=== PATIENT | female | born 1985 | race Caucasian/White ===

== ENCOUNTER → 2017-11-21 | Outpatient (CLI) | payer BC ==
[~2017-11-21] MED LIST: DROSPIRENONE; LORTAB 5/500 501 TAB PO; MOTRIN 800800 MG/TAB PO; NAPROSYN500 MG PO; PROBIOTIC FORMU1 CAP
== END ==
LOC: SUN.DIA 08:45
DX: O24.419 Gestational diabetes mellitus in pregnancy, unspecified control (principal); Z3A.29 29 weeks gestation of pregnancy; Z71.3 Dietary counseling and surveillance
CPT/HCPCS: G0108

== ENCOUNTER → 2017-12-06 | Outpatient (CLI) | payer BC | LOC: SUN.DIA 09:02 | DX: O24.419 Gestational diabetes mellitus in pregnancy, unspecified control (principal); Z3A.31 31 weeks gestation of pregnancy; Z71.3 Dietary counseling and surveillance | CPT/HCPCS: G0108 ==

== ENCOUNTER → 2017-12-13 | Outpatient (CLI) | payer BC | LOC: SUN.DIA 10:15 | DX: O24.414 Gestational diabetes mellitus in pregnancy, insulin controlled (principal); Z3A.32 32 weeks gestation of pregnancy; Z71.3 Dietary counseling and surveillance | CPT/HCPCS: G0108 ==

== ENCOUNTER → 2017-12-19 | Outpatient (CLI) | payer BC | LOC: SUN.DIA 09:40 | DX: O24.414 Gestational diabetes mellitus in pregnancy, insulin controlled (principal); Z3A.33 33 weeks gestation of pregnancy; Z71.3 Dietary counseling and surveillance | CPT/HCPCS: G0108 ==

== ENCOUNTER 2018-02-01 12:44 | Inpatient (IN) | payer BC ==
[~2018-02-01] VITALS: Ht 160 cm; Wt 75.9 kg
[2018-02-01] VITALS (28 sets, daily range): BP systolic 67–1110; BP diastolic 37–72; PULSE 80–108; TEMP 97.3–98.2
[2018-02-01 15:28] LABS: BASO % 0.2 % (0.0-2.0); EOS % 0.1 % (0-4.0); GRAN # 11.1 (1.4-6.5); GRAN % 81.6 % (42.2-75.2); LYMPH # 1.5 (1.2-3.4); LYMPH % 10.8 % (20.0-51.0); MEAN CELL VOLUME 96 fl (80.0-100.0); MEAN CORPUSCULAR HEMOGLOBIN 34 pg (27.0-31.0); MEAN CORPUSCULAR HGB CONC 36 g/dl (33.0-37.0); MEAN PLATELET VOLUME 10.6 fl (7.4-10.4); MONO # 0.9 (0.1-0.6); MONO % 6.7 % (1.7-9.3); PLATELET COUNT 186 K/mm3 (130-400); RED BLOOD COUNT 3.49 M/mm3 (4.10-5.30)
[2018-02-01 15:30] LABS: HEMATOCRIT 33.4 % (37.0-47.0)
[2018-02-01] MEDS ORDERED: BASAGLAR K100 UNIT/1 SQ (18:13)
[2018-02-01] MEDS ORDERED: PRENATAL MVI (18:14)
[2018-02-01] MEDS ORDERED: PROBIOTIC ACID1 EAC3 PO (18:14)
[2018-02-01] MEDS ORDERED: HUMALOG100 U/ML SQ (18:14)
[2018-02-02 02:44] VITALS: BP 95/59; PULSE 85; TEMP 97.9
[2018-02-02 05:45] VITALS: BP 99/65; PULSE 87; TEMP 97.6
[2018-02-02 08:38] LABS: HEMOGLOBIN 10.6 g/dl (12.5-16.0)
[2018-02-02 08:43] LABS: HEMATOCRIT 30.1 % (37.0-47.0)
[2018-02-02 09:00] VITALS: BP 98/59; PULSE 84; TEMP 98.2
[2018-02-02] MEDS ORDERED: IBU600 MG PO (10:36)
[2018-02-02 12:30] VITALS: BP 105/64; PULSE 80; TEMP 98.6
[2018-02-02 20:00] VITALS: BP 110/68; PULSE 82; TEMP 98.1
== END 2018-02-02 20:25 | disposition home or self-care (01) | DRG 775 ==
LOC: LDRO 12:44 → LDR 13:00 → LDRO 13:58 → LDR 14:00 → OB 22:09
PROVIDERS: Obstetrics & Gynecology
PROC: 10E0XZZ Delivery of Products of Conception, External Approach (ICD-10-PCS; principal; 2018-02-01)
PROC: 0KQM0ZZ Repair Perineum Muscle, Open Approach (ICD-10-PCS; 2018-02-01)
DX: O24.424 Gestational diabetes mellitus in childbirth, insulin controlled (principal); O36.0930 Maternal care for other rhesus isoimmunization, third trimester, not applicable or unspecified; Z3A.39 39 weeks gestation of pregnancy; Z37.0 Single live birth; O70.1 Second degree perineal laceration during delivery; O34.03 Maternal care for unspecified congenital malformation of uterus, third trimester; Q51.810 Arcuate uterus
CPT/HCPCS: J2590; J2791; J2795; J7030; J7120

== ENCOUNTER → 2020-09-20 | Outpatient (CLI) | payer BC ==
[~2020-09-20] MED LIST changes: +BASAGLAR K100 UNIT/1 SQ; +HUMALOG100 U/ML SQ; +IBU600 MG PO; +PRENATAL MVI; +PROBIOTIC ACID1 EAC3 PO
== END ==
LOC: DIA.ED 07:13 → DIA.EDTELE 11:17
DX: O24.419 Gestational diabetes mellitus in pregnancy, unspecified control (principal)
CPT/HCPCS: G0108

== ENCOUNTER → 2020-12-01 | Outpatient (CLI) | payer BC ==
[~2020-12-01] MED LIST changes: +PERCOCET 325 MG1 TA2 PO; +ZYRTEC 10MG10 MG
== END ==
LOC: ZCOL.LAB 10:08
DX: Z20.822 Contact with and (suspected) exposure to COVID-19 (principal)

== ENCOUNTER 2020-12-06 06:32 | Inpatient (IN) | payer BC ==
[~2020-12-06] VITALS: Ht 162.6 cm; Wt 84.1 kg
[2020-12-06] VITALS (42 sets, daily range): BP systolic 81–115; BP diastolic 51–77; PULSE 75–121; TEMP 98–98.5
[~2020-12-06 06:32] MED LIST changes: -PERCOCET 325 MG1 TA2 PO; -ZYRTEC 10MG10 MG
[2020-12-06] MEDS ORDERED: ZYRTEC 10MG10 MG (06:47)
[2020-12-06 07:36] LABS: BASO % 0.2 % (0.0-2.0); EOS % 0.3 % (0-4.0); GRAN # 6.8 (1.4-6.5); GRAN % 74.8 % (42.2-75.2); HEMOGLOBIN 12.3 g/dl (12.5-16.0); LYMPH # 1.6 (1.2-3.4); LYMPH % 17.6 % (20.0-51.0); MEAN CELL VOLUME 100 fl (80.0-100.0); MEAN CORPUSCULAR HEMOGLOBIN 35 pg (27.0-31.0); MEAN CORPUSCULAR HGB CONC 35 g/dl (33.0-37.0); MEAN PLATELET VOLUME 10.5 fl (7.4-10.4); MONO # 0.6 (0.1-0.6); MONO % 6.1 % (1.7-9.3); PLATELET COUNT 185 K/mm3 (130-400); RED BLOOD COUNT 3.56 M/mm3 (4.10-5.30); REDCELL DISTRIBUTION WIDTH-CV 13.2 % (11.5-14.5)
[2020-12-06 07:46] LABS: HEMATOCRIT 35.7 % (37.0-47.0)
--- NOTE | 2020-12-06 08:06 | NUR ---
0644 PATIENT HERE FOR INDUCTION OF LABOR. EFM ON FHT 125 BABY VERY ACTIVE AND HARD TO MONITOR. PATIENT STATES HAS BEEN RED SINCE THIS MORNING. NO CONTRACTIONS ON MONITOR A THIS TIME. ASSESSMENT COMPLETED AT THIS TIME.
--- NOTE | 2020-12-06 10:30 | NUR ---
1000 PATIENT SITS UP ON EDGE OF BED FOR EPIDURAL PLACEMENT AT THIS TIME. SEE PORTFOLIO STRATEGIST NOTES FOR QUESTIONS. PATIENT TOERTED WELL BUT VERY ANXIOUS. AT BEDSIDE
--- NOTE | 2020-12-06 10:48 | NUR ---
1027 EPHEDRINE 10 MG IV GIVEN AT THIS TIME.
--- NOTE | 2020-12-06 16:04 | NUR ---
1500 DR DORAN CALLED TO CHECK IN ON PATIENT. /0 1520 PATIENT CALLS OUT AND IS FEELING PRESSURE. SVE 8100/0. DR DORAN CALLED TO COME TO DELIVERY NOW. 1530 PATIENT FEELING TONS OF PRESSURE. SVE /+1. DISPATCH MANAGER AT BEDSIDE TO INCREASE EPIDURAL DOSE. 1540 TENA OUT AT THIS TIME. DR DORAN AT BEDSIDE. PATIETN PUSHES WITH EACH CONTRACTION. 1543 BABY BOY BORN VIA BY DR DORAN. TRUE KNOT NOTED TO CORD. BABY TO MOMS CHEST. 1545 CORD CLAMPED AND CUT BY DR. DORAN 1548 PLACENTA DELIVERED AND PITOCIN STARTED AT 333/HR PER PROTOCOL. FUNDUS FIRM AND BLEEDING WNL. SMALL REPAIR DONE AT THIS TIME BY DR DORAN. PATIENT TOLERATES WELL
--- NOTE | 2020-12-06 19:30 | NUR ---
1929 EPID CATH REMOVED. AMB TO BR WITH ASSIST X2. UNABLE TO VOID. PERICARE DONE AND TO 216 PER W/C AND DUSTY WELL
[2020-12-07 03:48] VITALS: BP 89/63; PULSE 70; TEMP 98.2
[2020-12-07] MEDS ORDERED: IBU600 MG PO (05:52)
[2020-12-07 07:00] VITALS: BP 109/61; PULSE 82; TEMP 98.1
[2020-12-07] MEDS ORDERED: PERCOCET 325 MG1 TA2 PO (07:10)
--- NOTE | 2020-12-07 09:13 | NUR ---
Initial visit; Parents thanked [facility] [employer] for offering congratulations and God's blessings for the of their son. [facility] thanked family for choosing [facility].
--- NOTE | 2020-12-07 09:14 | NUR ---
Initial visit attempt; Patient indisposed, Marketing Mgr left card offering God's blessings and information regarding the availability of spriritual care at our hospital.
[2020-12-07 16:25] VITALS: BP 104/62; PULSE 76; TEMP 98.1
== END 2020-12-07 17:35 | disposition home or self-care (01) | DRG 807 ==
LOC: LDR 06:32 → OB 10:09
PROVIDERS: ADMIT Obstetrics & Gynecology
PROC: 10E0XZZ Delivery of Products of Conception, External Approach (ICD-10-PCS; principal; 2020-12-06)
PROC: 10907ZC Drainage of Amniotic Fluid, Therapeutic from Products of Conception, Via Natural or Artificial Opening (ICD-10-PCS; 2020-12-06)
PROC: 3E033VJ Introduction of Other Hormone into Peripheral Vein, Percutaneous Approach (ICD-10-PCS; 2020-12-06)
PROC: 0HQ9XZZ Repair Perineum Skin, External Approach (ICD-10-PCS; 2020-12-06)
DX: O69.2XX0 Labor and delivery complicated by other cord entanglement, with compression, not applicable or unspecified (principal); Z37.0 Single live birth; Z28.21 Immunization not carried out because of patient refusal; O24.420 Gestational diabetes mellitus in childbirth, diet controlled; O70.0 First degree perineal laceration during delivery; O99.344 Other mental disorders complicating childbirth; F41.9 Anxiety disorder, unspecified; Z3A.39 39 weeks gestation of pregnancy
CPT/HCPCS: J2590; J2791; J2795; J7120

== ENCOUNTER → 2024-03-19 | Outpatient (CLI) | payer BC ==
[~2024-03-19] MED LIST changes: +PERCOCET 325 MG1 TA2 PO; +ZYRTEC 10MG10 MG
== END ==
LOC: MC.RAD 12:47
DX: Z12.31 Encounter for screening mammogram for malignant neoplasm of breast (principal)